=== PATIENT | female | born 1995 | race Two or more races ===

== ENCOUNTER 2018-04-30 06:52 | Emergency (ER) | payer OTHER ==
[~2018-04-30] VITALS: Ht 154.9 cm; Wt 91.9 kg
[2018-04-30] MEDS ORDERED: SODIUM CHLORIDE 0.9% 1,000ML IVBOLUS ONE (07:30)
[2018-04-30] MEDS ORDERED: ONDANSETRON 2MG/ML, 2ML IVPush ONE (07:30)
[2018-04-30 07:41] LABS: BASOPHILS # (AUTO) 0.04 x10^3/uL (0-0.1); BASOPHILS % (AUTO) 0 % (0-1); EOSINOPHILS # (AUTO) 0.01 x10^3/uL (0-0.4); EOSINOPHILS % (AUTO) 0 % (1-7); LYMPHOCYTES # (AUTO) 0.78 x10^3/uL (1-3.4); LYMPHOCYTES % (AUTO) 7 % (22-44); MD NO; MEAN CORPUSCULAR HEMOGLOBIN 30.1 pg (27.0-34.8); MEAN CORPUSCULAR HGB CONC 34.2 g/dL (32.4-35.8); MEAN CORPUSCULAR VOLUME 87.9 fL (80-100); MEAN PLATELET VOLUME 9.1 fL (7.4-10.4); MONOCYTES # (AUTO) 0.61 x10^3/uL (0.2-0.8); MONOCYTES % (AUTO) 5 % (2-9); NEUTROPHILS # (AUTO) 9.91 x10^3/uL (1.8-6.8); NEUTROPHILS % (AUTO) 87 % (42-75); PLATELET COUNT 198 x10^3/uL (130-400); RED BLOOD COUNT 4.52 x10^6/uL (3.82-5.3); RED CELL DISTRIBUTION WIDTH 12.9 % (9.6-15.2)
[2018-04-30 07:47] LABS: ANION GAP 8 mmol/L (5-15); CALCIUM 8.8 mg/dL (8.5-10.1); CHLORIDE 111 mmol/L (98-107); CREATININE 0.86 mg/dL (0.55-1.02)
[2018-04-30 07:48] LABS: ALBUMIN 3.5 g/dL (3.4-5.0)
[2018-04-30] MEDS ORDERED: ONDANSETRON 2MG/ML, 2ML ONE (07:50)
[2018-04-30 07:55] LABS: RAPID INFLUENZA A Negative (Negative); RAPID INFLUENZA B Negative (Negative)
[2018-04-30] MEDS ORDERED: ACETAMINOPHEN 500 MG TABLET ONE (08:22)
[2018-04-30] MEDS ORDERED: ACETAMINOPHEN 500 MG TABLET PO ONE (08:30)
[2018-04-30 08:44] LABS: MICROSCOPIC INDICATED
[2018-04-30 09:11] LABS: CULTURE INDICATED? YES
[2018-04-30 09:41] VITALS: BP 113/67
== END 2018-04-30 09:48 | disposition home or self-care (01) ==
LOC: ED 08:41
DX: B34.9 Viral infection, unspecified (principal); N30.00 Acute cystitis without hematuria
CPT/HCPCS: 36415; 71046; 80048; 81001; 82040; 84703; 85025; 87077; 87081; 87086; 87400; 87880; 96361; 96374; 99285; J2405; J7030; 87186

== ENCOUNTER → 2020-01-04 | Outpatient (CLI) | payer OTHER | END | disposition home or self-care (01) | LOC: RAD 16:35 | PROVIDERS: ATTEND Emergency Medicine | DX: R10.84 Generalized abdominal pain (principal); R19.7 Diarrhea, unspecified | CPT/HCPCS: 76700 ==

== ENCOUNTER 2020-01-05 13:47 | Emergency (ER) | payer OTHER ==
[~2020-01-05] VITALS: Ht 154.9 cm; Wt 89.3 kg
[2020-01-05 14:41] LABS: BASOPHILS # (AUTO) 0.04 x10^3/uL (0-0.1); BASOPHILS % (AUTO) 1 % (0-1); EOSINOPHILS # (AUTO) 0.03 x10^3/uL (0-0.4); EOSINOPHILS % (AUTO) 0 % (1-7); LYMPHOCYTES # (AUTO) 3.19 x10^3/uL (1-3.4); LYMPHOCYTES % (AUTO) 37 % (22-44); MD NO; MEAN CORPUSCULAR HGB CONC 33.6 g/dL (32.4-35.8); MEAN CORPUSCULAR VOLUME 89.5 fL (80-100); MEAN PLATELET VOLUME 9.2 fL (7.4-10.4); MONOCYTES # (AUTO) 0.49 x10^3/uL (0.2-0.8); MONOCYTES % (AUTO) 6 % (2-9); NEUTROPHILS # (AUTO) 4.93 x10^3/uL (1.8-6.8); NEUTROPHILS % (AUTO) 57 % (42-75); PLATELET COUNT 345 x10^3/uL (130-400); RED BLOOD COUNT 5.08 x10^6/uL (3.82-5.3); RED CELL DISTRIBUTION WIDTH 12.5 % (9.6-15.2)
--- NOTE | 2020-01-05 14:48 | NUR ---
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 NO ACUTE DISTRESS NOTED AT THIS TIME.
[2020-01-05 14:49] LABS: ALBUMIN 4.7 g/dL (3.4-5.0); ANION GAP 8 mmol/L (5-15); CALCIUM 9.7 mg/dL (8.5-10.1); CHLORIDE 109 mmol/L (98-107)
[2020-01-05 14:55] LABS: ALANINE AMINOTRANSFERASE 53 U/L (12-78); ALKALINE PHOSPHATASE 78 U/L (45-117); CREATININE 1.09 mg/dL (0.55-1.02); TOTAL PROTEIN 8.2 g/dL (6.4-8.2)
--- NOTE | 2020-01-05 15:04 | NUR ---
THIS IS A 24 YO FEMALE COMING IN FOR "RESULTS OF LIVER TEST ABNORMAL SO SENT ME HERE YESTERDAY FOR AN ULTRASOUND YESTERDAY. 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 PATIENT EXPERIENCING INTERMITTENT N/V/D FOR THE PAST WEEK. SEEN HERE YESTERDAY FOR ULTRASOUND AND DISCHARGED. ALL MONITORING IN PLACE, VSS, NSR ON FOREST MANAGER. CALL LIGHT IN REACH. UA COLLECTED AND SENT
[2020-01-05 15:06] VITALS: BP 121/77
[2020-01-05 15:20] LABS: MICROSCOPIC INDICATED
--- NOTE | 2020-01-05 15:37 | NUR ---
TOR Tucker at bedside for re-eval
[2020-01-05] MEDS ORDERED: MAALOX/HYOSCYAMINE/LIDOCAINE 45 ML BTL ONE (15:43)
[2020-01-05] MEDS ORDERED: MAALOX/HYOSCYAMINE/LIDOCAINE 45 ML BTL PO ONE (16:00)
[2020-01-05] MEDS ORDERED: ONDANSETRON ODT 4 MG ONE (16:09)
[2020-01-05] MEDS ORDERED: ONDANSETRON ODT 4 MG PO ONE (16:30)
== END 2020-01-05 17:00 | disposition home or self-care (01) ==
LOC: ED 16:10
DX: K29.00 Acute gastritis without bleeding (principal)
CPT/HCPCS: 36415; 80053; 81001; 83690; 84703; 85025; 87086; 99283; Q0162

== ENCOUNTER 2020-01-08 19:45 | Emergency (ER) | payer OTHER ==
[~2020-01-08] VITALS: Ht 154.9 cm; Wt 88.4 kg
[2020-01-08] MEDS ORDERED: FAMOTIDINE 20 MG/2 ML ONE (20:28)
[2020-01-08] MEDS ORDERED: ONDANSETRON 2MG/ML, 2ML ONE (20:28)
[2020-01-08] MEDS ORDERED: MAALOX/HYOSCYAMINE/LIDOCAINE 45 ML BTL ONE (20:28)
[2020-01-08] MEDS ORDERED: SODIUM CHLORIDE 0.9% 1,000ML IVBOLUS ONE (20:30)
[2020-01-08] MEDS ORDERED: FAMOTIDINE 20 MG/2 ML IVPush ONE (20:30)
[2020-01-08] MEDS ORDERED: MAALOX/HYOSCYAMINE/LIDOCAINE 45 ML BTL PO ONE (20:30)
[2020-01-08] MEDS ORDERED: ONDANSETRON 2MG/ML, 2ML IVPush ONE (20:30)
[2020-01-08] MEDS ORDERED: SODIUM CHLORIDE FLUSH 10ML SYR IVF ONE (20:30)
--- NOTE | 2020-01-08 20:45 | NUR ---
PT RESTING IN [facility] AT THIS TIME; EARLINE. PT CHANGED INTO GOWN AND ATTACHED TO VS MONITORS. VSS AT THIS TIME. PT EDUCATED ON ER PROCESS AND POC AND VERBALIZES UNDERSTANDING. IV ACCESS OBTAINED AND LABS DRAWN AT THIS TIME. PT INSTRUCTED ON THE NEED FOR URINE SAMPLE. PT MEDICATED WITH MEDS AND IV FLUIDS PER MAR. AWAITING FURTHER DIAGNOSTICS AT THIS TIME. PT HAS CALL LIGHT WITHIN REACH.
[2020-01-08 20:48] LABS: BASOPHILS # (AUTO) 0.05 x10^3/uL (0-0.1); BASOPHILS % (AUTO) 1 % (0-1); EOSINOPHILS # (AUTO) 0.03 x10^3/uL (0-0.4); EOSINOPHILS % (AUTO) 0 % (1-7); LYMPHOCYTES # (AUTO) 2.48 x10^3/uL (1-3.4); LYMPHOCYTES % (AUTO) 28 % (22-44); MD NO; MEAN CORPUSCULAR HEMOGLOBIN 30.1 pg (27.0-34.8); MEAN CORPUSCULAR HGB CONC 33.6 g/dL (32.4-35.8); MEAN CORPUSCULAR VOLUME 89.4 fL (80-100); MEAN PLATELET VOLUME 9.2 fL (7.4-10.4); MONOCYTES % (AUTO) 6 % (2-9); NEUTROPHILS # (AUTO) 5.73 x10^3/uL (1.8-6.8); NEUTROPHILS % (AUTO) 65 % (42-75); PLATELET COUNT 308 x10^3/uL (130-400); RED BLOOD COUNT 5.18 x10^6/uL (3.82-5.3); RED CELL DISTRIBUTION WIDTH 12.8 % (9.6-15.2)
[2020-01-08 20:56] LABS: ALANINE AMINOTRANSFERASE 75 U/L (12-78); ALBUMIN 4.3 g/dL (3.4-5.0); ANION GAP 10 mmol/L (5-15); CALCIUM 9.1 mg/dL (8.5-10.1); CHLORIDE 107 mmol/L (98-107)
[2020-01-08 21:01] LABS: ALKALINE PHOSPHATASE 73 U/L (45-117); BILIRUBIN,TOTAL 1.1 mg/dL (0.2-1.0); TOTAL PROTEIN 8.1 g/dL (6.4-8.2)
[2020-01-08] MEDS ORDERED: MORPHINE SULFATE 4 MG/ML, 1ML ONE (21:23)
[2020-01-08] MEDS ORDERED: MORPHINE SULFATE 4 MG/ML, 1ML IVPush ONE (21:30)
--- NOTE | 2020-01-08 21:30 | NUR ---
PT MEDICATED PER MAR FOR PAIN. DR SALOMON AT FOR PT HISTORY AND ASSESSMENT
[2020-01-08 21:52] VITALS: BP 135/94
[2020-01-08 22:08] LABS: MICROSCOPIC INDICATED
--- NOTE | 2020-01-08 22:19 | NUR ---
PT D/C WITH D/C SUMMARY AND SCRIPTS. ALL QUESTIONS ANSWERED. PT AMBULATES TO REGISTRATION DESK WITH STEADY GAIT FOR D/C HOME. PT IV D/C WITH TIP INTACT. PT DENIES ANY OTHER NEEDS PERTAINING TO THIS VISIT.
== END 2020-01-08 22:25 | disposition home or self-care (01) ==
LOC: ED 19:55
DX: R10.13 Epigastric pain (principal); R11.2 Nausea with vomiting, unspecified; F41.1 Generalized anxiety disorder; R19.7 Diarrhea, unspecified; R00.0 Tachycardia, unspecified
CPT/HCPCS: 36415; 71045; 80053; 81001; 83690; 84703; 85025; 93005; 96361; 96374; 96375; 99284; J2270; J2405; J3490; J7030; 99285

== ENCOUNTER 2020-01-11 07:53 | Emergency (ER) | payer OTHER ==
[~2020-01-11] VITALS: Ht 154.9 cm; Wt 86.7 kg
--- NOTE | 2020-01-11 08:17 | NUR ---
MONOTYPIST: PT WALKED BACK FROM LOBBY TO ROOM AT THIS TIME. STEADY UPON AMBULATION. NO ACUTE DISTRESS NOTED.
--- NOTE | 2020-01-11 08:42 | NUR ---
PT IN AT THIS TIME, ER PROVIDER IN TO EVAL PT. PT IS TEARFUL, STATES "IM JUST WIPED OUT FROM THIS" PT RECENTLY SEEN FOR CC AT GI MD 08/11 FOR ABD PAIN AND N/V. PT STATES, SHE HAD AN EGD SCHEDULED FOR 02/01. PT STATES SHE HAS NOT BEEN ABLE TO EAT SINCE 12/30. AT MD WAS DIAGNOSED WITH HYPEREMESIS D/T MARIJUANA USE. PT STATES SHE HAS ABSTAINED FROM MARIJUANA SINCE 12/30
[2020-01-11] MEDS ORDERED: FAMOTIDINE 20 MG TABLET ONE (08:54)
[2020-01-11] MEDS ORDERED: PROMETHAZINE 25 MG/ML, 1ML ONE (08:54)
[2020-01-11] MEDS ORDERED: MAALOX/HYOSCYAMINE/LIDOCAINE 45 ML BTL ONE (08:54)
[2020-01-11] MEDS ORDERED: PROMETHAZINE 25 MG/ML, 1ML IM ONE (09:00)
[2020-01-11] MEDS ORDERED: MAALOX/HYOSCYAMINE/LIDOCAINE 45 ML BTL PO ONE (09:00)
[2020-01-11] MEDS ORDERED: FAMOTIDINE 20 MG TABLET PO ONE (09:00)
[2020-01-11 09:33] LABS: ALANINE AMINOTRANSFERASE 104 U/L (12-78); ALBUMIN 4.7 g/dL (3.4-5.0); ANION GAP 11 mmol/L (5-15); CALCIUM 9.7 mg/dL (8.5-10.1); CHLORIDE 106 mmol/L (98-107); CREATININE 0.99 mg/dL (0.55-1.02)
[2020-01-11 09:36] LABS: ALKALINE PHOSPHATASE 80 U/L (45-117); BILIRUBIN,TOTAL 1.4 mg/dL (0.2-1.0); TOTAL PROTEIN 8.3 g/dL (6.4-8.2)
[2020-01-11 09:45] LABS: MICROSCOPIC INDICATED
--- NOTE | 2020-01-11 09:45 | NUR ---
PIV INITITAED, PT TO GO TO CT
[2020-01-11 09:57] LABS: MD YES; MEAN CORPUSCULAR HEMOGLOBIN 30.5 pg (27.0-34.8); MEAN PLATELET VOLUME 9.4 fL (7.4-10.4); PLATELET COUNT 352 x10^3/uL (130-400); RED BLOOD COUNT 5.34 x10^6/uL (3.82-5.3); RED CELL DISTRIBUTION WIDTH 12.6 % (9.6-15.2)
[2020-01-11 10:01] LABS: LYMPH#(MANUAL) 1.98 x10^3/uL (1-3.4); LYMPHS% (MANUAL) 19 % (22-44); MONOS% (MANUAL) 4 % (2-9); SEG#(MANUAL) 8.01 x10^3/uL (1.8-6.8); SEGS% (MANUAL) 77 % (42-75)
[2020-01-11 10:02] LABS: <PLATELET ESTIMATE> ADEQUATE; <PLT MORPHOLOGY> NORMAL PLT MORPH; <RBC MORPHOLOGY> NORMAL; MONOS#(MANUAL) 0.42 x10^3/uL (0.3-2.7)
[2020-01-11] MEDS ORDERED: OMNIPAQUE 350 MG/ML, 100ML BOTTLE ONE (11:01)
[2020-01-11] MEDS ORDERED: DICYCLOMINE 10 MG/ML, 2ML ONE (11:42)
--- NOTE | 2020-01-11 11:47 | NUR ---
FLOAT RN AT BEDSIDE TO ASSIST C ORDERED DC. TOR MCINTOSH, AT BEDSIDE TO DISCUSS POC C PT. PT REPORTS CONTINUED DISCOMFORT. ADDITIONAL MEDS ORDERED, ADMINISTERED DOCUMENTED ON EMAR. PRIMARY RN MADE AWARE. VSS. WILL CONTINUE TO MONITOR PER POLICY.
[2020-01-11 11:48] VITALS: BP 135/91
[2020-01-11] MEDS ORDERED: DICYCLOMINE 10 MG/ML, 2ML IM ONE (12:00)
== END 2020-01-11 12:55 | disposition home or self-care (01) ==
LOC: ED 08:29
DX: R11.2 Nausea with vomiting, unspecified (principal); R10.12 Left upper quadrant pain; R63.0 Anorexia
CPT/HCPCS: 36415; 74177; 80053; 81001; 83690; 85025; 96372; 99285; J0500; J2550; Q9967